=== PATIENT | male | born 1935 | race Caucasian/White ===

== ENCOUNTER → 2019-05-27 09:03 | Outpatient (CLI) | payer MEDICARE, OTHER ==
--- NOTE | 2019-05-31 09:53 | ST ---
PATIENT:ALEC FERNANDO MEDICAL RECORD: [id number] SEX: M LOCATION:[facility] ORDER #: ADMISSION DATE: 05/27/19 AGE OF PATIENT: 84 REFERRING PHYSICIAN: INTERPRETING PHYSICIAN: RAJ SUAREZ MD DATE OF SERVICE: 05/27/2019 PROCEDURE: Nuclear stress test. INDICATIONS: Chest pain, angina, shortness of breath. He was exercised on standard Lexiscan protocol with 33 mCi of sestamibi injected at peak stress, 11 mCi used previously for rest images. FINDINGS: Gated SPECT reveals preserved ejection fraction at 69% with good wall motion and thickening and brightening throughout all segments. SPECT imaging: Cardiolite was used as myocardial perfusion agent. There is reversibility inferiorly as well as apically. This includes the basal, mid, apical, inferior segments as well as the apex itself. The degree of reversibility is mild to moderate. The amount of myocardium involved is moderate. OVERALL IMPRESSION: This is an intermediate risk nuclear stress test, relatively a [id number]-[id number] amount of myocardium involved inferoapically with reversible ischemia with a preserved ejection fraction at 69% suggestive of hemodynamically significant coronary artery disease being present. TRANSINT:[id number] Voice Confirmation ID: [id number] DOCUMENT ID: [id number] RAJ SUAREZ MD at 0953 CC: [id number] DICTATION DATE: 05/27/19 1407 MANAGER SOCIAL WORK: 05/28/19 0119 DEP CLI 05/27/19 [place] [id number]
== END | disposition home or self-care (01) ==
LOC: D.HCCARDIO 09:03
PROVIDERS: ATTEND Internal Medicine Interventional Cardiology
DX: R07.9 Chest pain, unspecified (principal)

== ENCOUNTER 2019-07-19 08:57 | Outpatient (CLI) | payer OTHER ==
[~2019-07-19] VITALS: Ht 185.4 cm; Wt 94.5 kg
--- NOTE | ~2019-07-19 | HEMODYNAMI ---
PATIENT:ALEC FERNANDO MEDICAL RECORD: [id number] : 31 LOCATION:[facility] ADMISSION DATE: 07/19/19 Generatedon:07/19/201913:35 Patient name: ALEC FERNANDO Patient #: [id number] SSN: DO B: 1935 Date of study: 07/19/2019 Page: Of Hemodynamic Procedure Report Patient Data Patient Demographics Procedure consent was obtained First Name: ALEC Gender: Male Last Name: ABDULLAHI : 1935 Middle Initial: A Age: 84 year(s) Patient #: [id number] Race: Unknown Additional ID: [id number] Contact details [address]: [address] [place] [address] State: [place] City: [place] Zip code: [address] Past Medical History Performed procedures and imaging results Date Procedure Procedure Results Comments Stress testing with Positive SPECT MPI Allergies: No known allergies Admission Admission Data Admission Date: 07/19/2019 Admission Time: 8:57 Height (in.): 73 BSA: 2.19 (m2) Height (cm.): 185.42 BMI: 27.63 (kg/m2) Weight (lbs.): 209.44 Weight (kg.): 95 Lab Results Lab Result Date: 07/19/2019 Lab Result Time: 0:00 Biochemistry Name Units Result Min Max BUN mg/dl 19 --(----)*- 7 18 Creatinine mg/dl 0.9 --(-*--)-- 0.6 1.3 eGFR ml/min 85.04854 -*(----)-- 90 120 NONAFRICAN CBC Name Units Result Min Max Hematocrit % 45.1 --(-*--)-- 42 54 Hemoglobin g/dl 15.2 --(-*--)-- 13.5 17.5 Procedure Procedure Types Cath Procedure Diagnostic Procedure [facility] ED w/Coronaries FFR/IVUS FFR Initial Sedation Charges Moderate Sedation up to 15 minutes PCI Procedure Coronary Stent Coronary Stent Initial Procedure Description Procedure Date Procedure Date: 07/19/2019 Procedure Start Time: 13:07 Procedure End Time: 13:30 Procedure Staff Name Function Ej Rankin MD Performing Physician Jayla Cannon RT Monitor Arian Guerra RT Scrub Blanka Langford RN Nurse Procedure Data Cath Procedure Fluoroscopy Diagnostic fluoroscopy Total fluoroscopy Time: 7.5 time: 7.5 min min Diagnostic fluoroscopy Total fluoroscopy dose: 986 dose: 986 mGy mGy Contrast Material Contrast Material Type Amount (ml) Isovue 300 143 Entry Location Entry Primary Successful Side Size Upsize Upsize Entry Closure Mary ccessful Closure Location (Fr) 1 (Fr) 2 (Fr) Remarks Device Remarks Radial Right 6 Fr Mechanical artery Short Compression Estimated blood loss: 10 ml Diagnostic catheters Device Type Used For End Catheter Placement DIAGNOSTIC [place] 110cm 5 Procedure Fr catheter ([id number]) Procedure Complications No complications Procedure Medications Medication Administration Route Dosage Oxygen etCO2 Nasal cannula 2 l/min Lidocaine 2% added to field 20 Heparin Flush Bag added to field 2 bags (1000units/500ml NS) 0.9% NaCl I.V. 100 ml/hr Radial Cocktail I.A. 1 syringe (Verapamil 2mg/Nitro 400mcg/Heparin 1500units) Versed I.V. 1 mg Fentanyl I.V. 50 mcg Versed I.V. 1 mg Fentanyl I.V. 50 mcg Heparin Bolus I.V. 4000 units Integrilin (Bolus I.V. 8.5 ml 2mg/ml) Plavix P.O. 600 mg Hemodynamics Rest BSA: 2.19 (m2) HGB: 15.2 (g/dl) O2 Consumption: Estimated: 243.9 (ml/min) O2 Con sumption indexed: Estimated:111.37 (ml/min/m) Heart Rate: 65 (bpm) Snapshots Pre Cath Intra NCS Post Cath Vital Signs Time Heart Resp SPO2 etCO2 NIBP (mmHg) Rhythm Pain Sedation Rate (ipm) (%) (mmHg) Status Level (bpm) 12:51:16 66 11 98 32.9 173/96(145) NSR 0 (11) 10(A) , No pain 12:55:46 64 15 99 32.9 161/78(136) NSR 0 (11) 10(A) , No pain 13:00:06 65 14 97 12.7 151/82(134) NSR 0 (11) 10(A) , No pain 13:04:26 64 14 98 0 160/76(129) NSR 0 (11) 10(A) , No pain 13:08:49 63 11 98 35.1 149/79(127) NSR 0 (11) 10(A) , No pain 13:13:05 69 23 96 17.2 131/70(88) NSR 0 (11) 9(A) , No pain 13:17:19 67 17 94 0 131/76(111) NSR 0 (11) 9(A) , No pain 13:21:37 65 11 94 0.7 133/66(113) NSR 0 (11) 9(A) , No pain 13:25:53 66 12 96 35.9 133/73(116) NSR 0 (11) 9(A) , No pain 13:30:11 68 11 97 35.1 120/63(106) NSR 0 (11) 10(A) , No pain Medications Time Medication Route Dose Verified Delivered Reason Not es Effectiveness by by 12:51:10 Oxygen etCO2 2 l/min Ej Storyie used for Nasal Massiel Langford RN procedure cannula 12:51:17 Lidocaine 2% added 20ml Ej Ej for local to vial Massiel Rankin MD anesthetic field 12:51:24 Heparin Flush added 2 bags Ej Pagan used for Bag to Massiel Rankin MD procedure (1000units/500ml field NS) 12:51:33 0.9% NaCl I.V. 100 Ej [place]coso Per physician ml/hr Massiel Langford RN 13:07:21 Versed I.V. 1 mg Ej Buffie for sedation Massiel Langford RN 13:07:26 Fentanyl I.V. 50 mcg Ej Buffie for sedation Massiel Langford RN 13:08:56 Radial Cocktail I.A. 1 Ej Ej for (Verapamil syringe Massiel Rankin MD vasodilation 2mg/Nitro 400mcg/Heparin 1500units) 13:11:52 Versed I.V. 1 mg Ej Buffie for sedation Massiel Langford RN 13:11:57 Fentanyl I.V. 50 mcg Ejcedrick Storyie for sedation Massiel Langford RN 13:23:04 Heparin Bolus I.V. 4000 Ej Buffie for fifi ified units Massiel Langford RN anticoagulation with dr rankin 13:24:26 Integrilin I.V. 8.5 ml Ej viramontes (Bolus 2mg/ml) Massiel Langford RN antiplatelet therapy 13:30:16 Plavix P.O. 600 mg Ej Langford RN antiplatelet therapy Procedure Log Time Note 12:31:37 Signed procedure consent form obtained from patient. 12:31:39 Procedure Status Elective Heart Cath (OP). 12::41 Time tracking: Regular hours (M-F 7:00 - 5:00) 12:31:45 Plan of Care:Hemodynamics will remain stable., Cardiac rhythm will remain stable., Comfort level will be maintained., Respiratory function will remain adequate., Patient/ family verbilizes understanding of procedure., Procedure tolerated without complication., Recovers from procedure without complications.. 12:34:10 Patient Weight : 209.44 lbs 12:35:33 Patient Height : 73 inches 12:35:46 Patient allergic to No known allergies 12:35:49 Blanka Langford RN sent for patient. Start room use. 12:41:21 Patient received from Pre/Post Procedure Room to CCL 1 Alert and oriented. Tansferred to table in Supine position. 12:41:22 Warm blankets applied, and lindsey hugger turned on for patient comfort. 12:41:22 Correct patient and procedure confirmed by team. 12:41:23 ECG and BP/O2 sat monitors applied to patient. 12:50:01 Vital chart was started 12:50:05 Rhythm: sinus rhythm 12:50:07 Baseline sample Acquired. 12:50:09 Full Disclosure recording started 12:50:21 H&P Date Dictated: 06/20/2019 Within 30 days and on chart., H&P Addendum completed by physician on day of procedure. (MUST COMPLETE FOR ALL OUTPATIENTS). 12:50:41 Pre-procedure instructions explained to patient. 12:50:43 Pre-op teaching completed and patient verbalized understanding. 12:50:50 Is patient on blood thinner?No 12:50:51 Patient diabetic? No. 12:50:54 Previous problem with sedation/anesthesia? No ? 12:50:55 Snore? Yes 12:50:56 Sleep apnea? No 12:50:57 Deviated septum? No 12:50:59 Opens mouth fully? Yes 12:51:02 Sticks out tongue? Yes 12:51:04 Airway obstruction? No ? 12:51:07 Dentures? No ? 12:51:09 Modified Hal's test Ulnar < 7 seconds 12:51:10 Oxygen 2 l/min etCO2 Nasal cannula was administered by Blanka Langford RN; used for procedure; 12:51:11 Patient pain scale 0/10 ?. 12:51:16 IV patent on arrival in left hand with 0.9% NaCl at [facility]. 12:51:17 Lidocaine 2% 20ml vial added to field was administered by Ej Rankin MD; for local anesthetic; 12:51:24 Heparin Flush Bag (1000units/500ml NS) 2 bags added to field was administered by Ej Rankin MD; used for procedure; 12:51:33 0.9% NaCl 100 ml/hr I.V. was administered by Blanka Langford RN; Per physician; 12:56:20 Lab Result : BUN 19 mg/dl 12:56:20 Lab Result : Creatinine 0.9 mg/dl 12:56:20 Lab Result : eGFR NONAFRICAN 85.35314 ml/min 12:56:20 Lab Result : Hemoglobin 15.2 g/dl 12:56:20 Lab Result : Hematocrit 45.1 % 12:56:23 Lab results completed and on chart. 12:56:27 Right Radial & Right Groin area was prepped with chlora-prep and draped in sterile fashion 12:56:28 Alarms reviewed by R. N. 12:56:28 Sharps counted by scrub and verified by R.N. 13:00:51 Use device set Radial Dx or PCI 13:00:52 ACIST Syringe (49657) opened to sterile field. 13:00:53 ACIST Hand Control (20427) opened to sterile field. 13:00:53 ACIST Manifold (99857) opened to sterile field. 13:00:56 Tegaderm 4 x 4 (1626W) opened to sterile field. 13:01:02 Bag Decanter (2002) opened to sterile field. 13:01:03 Medline Cath Pack ([id number]) opened to sterile field. 13:01:03 MBrace Wrist Support (529290111) opened to sterile field. 13:01:05 SHEATH 6FR RAIN (6739544) opened to sterile field. 13:01:07 EMERALD Guide Wire (950-956) opened to sterile field. 13:06:48 --------ALL STOP TIME OUT------ 13:06:49 Final Timeout: patient, procedure, and site verified with staff and physician. All members of the team are in agreement. 13:06:50 Right Radial & Right Groin site verified by team. 13:06:54 Fire Safety Assessment: A--An alcohol-based skin anteseptic being used preoperatively., C--Open oxygen or nitrous oxide is being used., D--An ESU, laser, or fiber-optic light is being used. 13:06:56 Physical assessment completed. ASA score P 2 - A patient with mild systemic disease as per Ej Rankin MD. 13:06:59 2) 60-89 Mildly reduced kidney function, and other findings (as for stage 1) point to kidney disease. 13:07:02 Maximum allowable contrast dose (3.7 X eGFR X 0.75)236 ml. 13:07:05 Sedation plan: IV Moderate Sedation Medication:Versed, Fentanyl 13:07:09 Procedure started. 13:07:19 Local anesthetic to right radial artery with Lidocaine 2% by Ej Rankin MD.INITIAL ACCESS ONLY 13:07:21 Versed 1 mg I.V. was administered by Blanka Langford RN; for sedation; 13:07:26 Fentanyl 50 mcg I.V. was administered by Blanka Langford RN; for sedation; 13:08:05 A 6 Fr Short sheath was inserted into the Right Radial artery 13:08:32 A DIAGNOSTIC [place] 110cm 5 Fr catheter (798690) was advanced over the wire and used for Procedure. 13:08:56 Radial Cocktail (Verapamil 2mg/Nitro 400mcg/Heparin 1500units) 1 syringe I.A. was administered by Ej Rankin MD; for vasodilation; 13:09:47 LV gram done using TAVAREZ 13:09:51 Injector settings: Ml/sec: 5, Volume: 15, 13:10:45 EF : 55 % 13:11:52 Versed 1 mg I.V. was administered by Blanka Langford RN; for sedation; 13:11:53 LCA angiography performed. 13:11:57 Fentanyl 50 mcg I.V. was administered by Blanka Langford RN; for sedation; 13:12:37 RCA angiography performed. 13:12:57 Catheter exchanged over wire. 13:14:29 [place] Verrata Plus pressure wire (77697B) opened to sterile field. 13:14:30 INFLATOR Merit BasixCompak (DE2950) opened to sterile field. 13:14:30 GUIDE 6FR AR 2.0 SH catheter ([id number]) opened to sterile field. 13:14:46 6 Fr AR2 SH guide catheter was inserted over the wire 13:16:52 Guide Catheter removed. unable to cannulate vessel. 13:17:19 GUIDE 6FR HS II SH catheter ([id number]) opened to sterile field. 13:18:34 6 Fr HS 2 SH guide catheter was inserted over the wire 13:21:34 FFR/IFR wire advanced. 13:21:34 Wire advanced across lesion. 13:21:43 pRCA lesion measured at .84 with IFR 13:23:04 Heparin Bolus 4000 units I.V. was administered by Blanka Langford RN; for anticoagulation; verified with dr rankin 13:23:28 Pre PCI Site: [place] mRCA has 70% stenosis. 13:24:20 Place stent Inflation Number: 1 A COBRA RX 2.5 X 15 Stent was prepped and advanced across the Mid RCA 70. The stent was deployed at 13 SARA for 0:00 (min:sec) 0. 13:24:26 Integrilin (Bolus 2mg/ml) 8.5 ml I.V. was administered by Blanka Langford RN; for antiplatelet therapy; 13:25:15 Stent catheter was removed intact over wire. 13:25:16 Wire removed. 13:25:17 Guide catheter removed. 13:25:24 ZEPHYR REGULAR TR BAND (752689) opened to sterile field. 13:25:32 Procedure ended.(Physican Out) 13:26:05 ACT drawn and resulted at 326 seconds. (normal therapeutic range 180-240 seconds). 13:26:33 Sheath removed intact; hemostasis achieved with Mechanical Compression to the Right Radial artery. 13:26:38 Fluoroscopy time 07.50 minutes. ::42 Fluoroscopy dose: 986 mGy 13::42 Flurop Dose total: 986 13::52 Dose Area Product 62862 mGy/cm. 13:26:56 Contrast amount:Isovue 300 143ml. 13:26:59 Maximum allowable dose exceeded? No. 13:27:18 Sharps counted by scrub and verified by R.N. 13:29:14 [place] band inflated with 9cc of air. 13:29:26 Post-procedure physical assessment completed. ASA score P 2 - A patient with mild systemic disease as per Ej Rankin MD. 13:29:32 Post procedure rhythm: sinus rhythm 13::36 Estimated blood loss: 10 ml 13:29:40 Post procedure instruction explained to patient.Patient verbalizes understanding. 13:29:40 Patient needs reinforcement of post procedure teaching. 13:30:09 Procedure type changed to Cath procedure, Diagnostic procedure, LHC, LHC w/Coronaries, FFR/IVUS, FFR Initial, Sedation Charges, Moderate Sedation up to 15 minutes, PCI procedure, Coronary Stent, Coronary Stent Initial 13:30:16 Plavix 600 mg P.O. was administered by Blanka Langford RN; for antiplatelet therapy; 13:30:39 Procedure and supply charges have been captured, reviewed, submitted and are correct. 13:30:42 Procedure Complication : No complications 13:30:45 Vital chart was stopped 13:30:46 See physician's report for complete and final results. 13:30:47 Report given to Pre/Post Procedure Room. 13:30:50 Patient transfered to Pre/Post Procedure Room with Bed. 13:30:52 Procedure ended. 13:30:52 Full Disclosure recording stopped 13:30:56 End room use (Document Last) Intervention Summary Intervention Notes Time ActionType Lesion and Equipment Action# Pressure Duration Attributes Used 13:24:20 Place stent Mid RCA COBRA RX 1 13 00:00 2.5 X 15 Stent Device Usage Item Name Manufacture Quantity Catalog Hospital Part Current Minimal Lot# / Number Charge Number Stock Stock Serial# Code ACIST Syringe Acist 1 11698 594498 932865 676453 20 (05394) Medical Systems Inc ACIST Hand Acist 1 31852 194489 101518 720356 5 Control Medical (19127) Systems Inc ACIST Manifold Acist 1 05105 700069 476608 366015 5 (23797) Medical Systems Inc Tegaderm 4 x 4 3M 1 1626W 647648 038211 559335 5 (1626W) Bag Decanter Microtek 1 2001S 754864 49058 587205 5 (2001S) Medical Inc. Medline Cath Medline 1 [id number] 136886 93801 531914 5 Pack ([id number]) MBrace Wrist Advanced 1 140-0250-00 993920 01666 861898 5 Support Vascular ([id number]) Dynamics SHEATH 6FR Cardinal 1 9753743 770151 3581828 717590 5 RAIN (7418801) Health EMERALD Guide Cardinal 1 502-455 059268 551109 505833 5 Wire (502-455) [facility] DIAGNOSTIC Terumo 1 40-9583 555317 818499 533781 5 [place] 110cm 5 Fr catheter (429691) [place] 1 74451J 125314 [id number] 549177 5 Verrata Plus pressure wire (06721B) INFLATOR Merit Merit 1 [id number] 481237 644815 762174 15 I AND [employer] Medical (IZ9986) GUIDE 6FR AR Medtronic 1 [id number] 137079 00457 057660 1 2.0 SH catheter ([id number]) GUIDE 6FR HS Medtronic 1 [id number] 248237 21884 495542 1 II SH catheter ([id number]) COBRA RX 2.5 X Celonova 1 908-07-13609 715214 [id number] [id number] 3 [id number] 15 stent Biosciences ([id number]) ZEPHYR REGULAR Cardinal 1 985613 920180 2666080 270840 5 [facility] Arkivum (749750) Signature Audit [place] Stage Time Signature Unsigned Intra-Procedure 07/19/2019 Jayla Cannon 1:34:56 PM RT(R) Intra-Procedure 07/19/2019 Blanka Langford RN 1:35:20 PM Intra-Procedure 07/19/2019 Ej Rankin 1:35:47 PM [facility] [address] [place] [address]
[2019-07-19] MEDS ORDERED: MELATONIN10 M1 PO (09:31)
[2019-07-19] MEDS ORDERED: DULCOLAX STOOL100 MG PO (09:32)
[2019-07-19] MEDS ORDERED: VITAMIN B-122500 MCG PO (09:32)
[2019-07-19] MEDS ORDERED: BAYER CHEWABLE81 MG PO (09:32)
[2019-07-19] MEDS ORDERED: ALEVE220 MG PO (09:33)
[2019-07-19] MEDS ORDERED: MULTI-DAY VITAM1 TAB PO (09:33)
[2019-07-19] MEDS ORDERED: GARLIC PO (09:33)
--- NOTE | 2019-07-19 10:02 | NUR ---
4875 ALEKSEY CAGLE RNVARNISH THINNER NOTIFIED OF POSITIVE SUICIDE RISK SCREENING.
[2019-07-19 10:03] VITALS: BP 185/80; Ht 185.4 cm; Wt 94.5 kg
[2019-07-19 10:14] LABS: ALT (SGPT) 13 U/L (10-68); CALC OSMOLALITY 282 mosm/kg (275-300); CALCIUM 8.5 mg/dL (8.5-10.1); CARBON DIOXIDE 28.9 mmol/L (21.0-32.0); CHLORIDE - SERUM 106 mmol/L (98-107); CHOL - HDL RATIO 4.4 ratio (2.3-4.9); CHOLESTEROL, TOTAL 174 mg/dL (0-200); CREATININE - SERUM 0.9 mg/dL (0.6-1.3); GLUCOSE 91 mg/dL (74-106); HDL CHOLESTEROL 40 mg/dL (32-96); LDL CHOLESTEROL 119 mg/dL (0-100); SODIUM 141 mmol/L (136-145); TRIGLYCERIDE 78 mg/dL (30-200); UREA NITROGEN 19 mg/dL (7-18); eGFR NON AFRICAN AMERICAN 85 mL/min (90-120)
--- NOTE | 2019-07-19 11:52 | NUR ---
DR. DERAS COVERING FOR DR. SAMUELS NOTIFIED AND REVIEWED PT'S BEHAVIOR AND ASSESSMENT RESULTS. STATED TO GIVE RESOURCES TO PT AT TIME OF DISCHARGE. NO FURTHER ORDERS AT THSI TIME. RESOURCES REVIEWED WITH PT AND HE VERBALIZED UNDERSTANDING.
[2019-07-19 12:02] LABS: BASOPHILS 0.9 % (0-2); EOSINOPHILS 2.2 % (0-7); HEMATOCRIT 45.1 % (42.0-54.0); HEMOGLOBIN 15.2 g/dL (13.5-17.5); IMMATURE GRANULOCYTES 0.2 % (0-5); LYMPHOCYTES 26.6 % (15-50); MCH 28.5 pg (26.0-34.0); MCHC 33.7 g/dL (31.0-37.0); MCV 84.5 fL (80.0-100.0); MEAN PLATELET VOLUME 11.4 fL (7.4-10.4); MONOCYTES 8.8 % (2-11); NEUTROPHILS 61.3 % (40-80); RBC 5.34 10x6/uL (4.20-6.10); RDW 14.6 % (11.5-14.5)
[2019-07-19 12:03] LABS: PLATELET COUNT 231 10x3/uL (130-400)
--- NOTE | 2019-07-19 12:06 | NUR ---
NUNO BOYER WITH BEHAVIORAL HEALTH HAS ASSESSED AND CLEARED PT.
--- NOTE | 2019-07-19 13:56 | NUR ---
RECEIVED PT FROM JEWELRY DIPPER, PT IS ALERT, DENIES ANY C/O PAIN OR NAUSEA. NSR, RATE IS 63, BP IS 136/70. Z BAND IS CDI TO RIGHT WRIST, WRIST IMMOBILIZER IN PLACE. FINGERS WARM AND CAP REFILL IS BRISK. FRIEND AT BEDSIDE.
[2019-07-19] MEDS ORDERED: PLAVIX75 MG PO (14:05)
--- NOTE | 2019-07-19 14:11 | NUR ---
DR SUAREZ HAS ROUNDED, PT IS ALERT AND DENIES ANY C/O PAIN OR NAUSEA. Z BAND IS CDI, FINGERS WARM AND CAP REFILL IS BRISK. PO FLUIDS AT BEDSIDE, CALL LIGHT IS IN REACH.
--- NOTE | 2019-07-19 14:28 | NUR ---
PT SITTING UP IN BED, ALERT AND DENIES ANY C/O. Z BAND IS CDI, FINGERS WARM AND CAP REFILL IS BRISK. VSS, NO FAMILY AT BEDSIDE. PT REBEKAH SIPS OF WATER, STATES DOES NOT WANT SANDWICH AT THIS TIME. CALL LIGHT IN REACH.
--- NOTE | 2019-07-19 14:50 | NUR ---
PT SITTING UP IN BED, WATCHING TV. DENIES ANY C/O. VSS, Z BAND CDI, FINGERS WARM AND CAP REFILL IS BRISK.
--- NOTE | 2019-07-19 15:30 | NUR ---
PT ALERT, DENIES ANY C/O. Z BAND CDI, FINGERS WARM AND CAP REFILL IS BRISK. NSR, DENIES ANY C/O CHEST PAIN. SITTING UP IN BED, WATCHING TV, CALL LIGHT IN REACH.
--- NOTE | 2019-07-19 16:00 | NUR ---
PT VOIDED 400 CC CLEAR YELLOW URINE TO URINAL. Z BAND IS CDI, FINGERS WARM AND CAP REFILL IS BRISK. PT HAS REBEKAH 100% OF SANDWICH WTIH NO C/O NAUSEA. VSS.
--- NOTE | 2019-07-19 17:05 | NUR ---
1605 2 CC OF AIR WEANED FROM Z BAND WITH NO BLEEDING NOTED. 1620 3 CC OF AIR WEANED FROM Z BAND WITH NO BLEEDING NOTED. FINGERS WARM, CAP REFILL IS BRISK. PT ALERT AND DENIES ANY C/O.
--- NOTE | 2019-07-19 17:06 | NUR ---
1705 ALL AIR HAS BEEN WEANED FROM Z BAND WITH NO BLEEDING NOTED. FINGERS WARM AND CAP REFILL IS BRISK. FRIEND AT BEDSIDE, PT SITTING UP IN BED, WATCHING TV.
--- NOTE | 2019-07-19 17:55 | NUR ---
1720 Z BAND REMOVED AND 2X2, TEGADERM PLACED TO SITE. FINGERS WARM, CAP REFILL IS BRISK. PULSES PALPABLE. PT DENIES ANY NV DEFICIT TO HAND. WRIST IMMOBILIZER IN PLACE. IV HAS BEEN DC'D WITH CATH INTACT. DC INSTRUCTIONS REVIEWED WITH PT AND SIGNIFICANT OTHER WHO VERBALIZE UNDERSTANDING. PT AND SO VERBALIZE UNDERSTANDING TO START PLAVIX TOMORROW, MED COUNSELOR SHEET REVIEWED WITH PT AND COPY PROVIDED. 1735 PT DRESSING FOR DC TO HOME WITH ASSIST FROM NURSE. 1750 PT DRESSED FOR DC TO HOME. IS ALERT AND DENIES ANY C/O. DRESSING IS CDI TO RIGHT WRIST, FINGERS WARM AND PULSES PALPABLE. PT DENIES ANY NV DEFICIT TO HAND. PT ESCORTED TO PRIVATE AUTO VIA WC BY NURSE WITH SIGNIFICANT OTHER DRIVING HIM HOME. PT HAS ALL PERSONAL BELONGINGS AND DC INSTRUCTIONS UPON LEAVING UNIT.
--- NOTE | 2019-07-21 09:14 | OP ---
PATIENT NAME: ALEC FERNANDO MEDICAL RECORD: [id number] :31 LOCATION:[facility] ADMISSION DATE: SURGEON: RAJ SUAREZ MD DATE OF OPERATION: 07/19/2019 PROCEDURES: 1. PTCA stent RCA. 2. IFR. 3. Left heart catheterization. 4. Selective coronary angiography. 5. Left ventriculogram. INDICATION: Angina, coronary artery disease, abnormal nuclear stress test. PROCEDURE IN DETAIL: After informed consent was obtained and after a detailed description of risks, benefits as well as alternative therapies, the patient elected to proceed with angiogram and angioplasty. The right radial area was prepped and draped in normal sterile fashion. Right radial artery was cannulated via modified Seldinger technique with placement of 6-Filipino sheath. All catheters exchanged through this sheath. FINDINGS: The left ventriculogram was performed in standard 30-degree TAVAREZ view, reveals good cardiac wall motion, ejection fraction is 60%. SELECTIVE CORONARY ANGIOGRAPHY: 1. Left main is with no significant angiographic disease. 2. Left anterior descending has moderate irregularities, but no flow-limiting stenosis. 3. The left circumflex has moderate irregularities, but no flow-limiting stenosis. 4. Right coronary artery has 70% stenosis in the mid vessel. This correlates with the perfusion defect on nuclear stress testing and IFR is abnormal at 0.84. PTCA STENT OF THE RCA: The stent used 2.5 x 15 mm Cobra. Result was 0% residual stenosis. OVERALL IMPRESSION: Successful percutaneous transluminal coronary angioplasty stent of the right coronary artery going from 70% initial stenosis with abnormal IFR to 0% residual. TRANSINT:[id number] Voice Confirmation ID: [id number] DOCUMENT ID: [id number] RAJ SUAREZ MD at 0914 CC: [id number] DICTATION DATE: 07/19/19 1328 LEGAL DOCUMENT SPECIALIST: 07/19/19 1343 DEP CLI 07/19/[address] [address]
== END 2019-07-19 17:50 | disposition home or self-care (01) ==
LOC: D.CATH 08:57
PROVIDERS: ATTEND Internal Medicine Interventional Cardiology
DX: I25.119 Atherosclerotic heart disease of native coronary artery with unspecified angina pectoris (principal); R94.30 Abnormal result of cardiovascular function study, unspecified

== ENCOUNTER 2019-11-18 08:52 | Emergency (ER) | payer OTHER ==
[~2019-11-18] VITALS: Ht 185.4 cm; Wt 94.5 kg
[~2019-11-18 08:52] MED LIST: ALEVE220 MG PO; BAYER CHEWABLE81 MG PO; DULCOLAX STOOL100 MG PO; GARLIC PO; MELATONIN10 M1 PO; MULTI-DAY VITAM1 TAB PO; PLAVIX75 MG PO; VITAMIN B-122500 MCG PO
[2019-11-18 08:55] VITALS: Ht 185.4 cm; Wt 94.5 kg
[2019-11-18 09:32] LABS: BASOPHILS 0.5 % (0-2); EOSINOPHILS 1.1 % (0-7); HEMATOCRIT 39.2 % (42.0-54.0); HEMOGLOBIN 12.6 g/dL (13.5-17.5); IMMATURE GRANULOCYTES 0.2 % (0-5); LYMPHOCYTES 22.9 % (15-50); MCH 27.4 pg (26.0-34.0); MCHC 32.1 g/dL (31.0-37.0); MCV 85.2 fL (80.0-100.0); MEAN PLATELET VOLUME 10.8 fL (7.4-10.4); MONOCYTES 7.2 % (2-11); NEUTROPHILS 68.1 % (40-80); PLATELET COUNT 292 10x3/uL (130-400); RDW 14.4 % (11.5-14.5)
[2019-11-18 09:35] LABS: APTT 26.7 SECONDS (22.8-39.4); INR 1.07 (0.85-1.17); PROTIME 13.8 SECONDS (11.6-15.0)
[2019-11-18 09:40] LABS: ANION GAP 11.5 mmol/L (8-16); CALCIUM 8.4 mg/dL (8.5-10.1); CARBON DIOXIDE 27.6 mmol/L (21.0-32.0); CREATININE - SERUM 1.1 mg/dL (0.6-1.3); POTASSIUM - SERUM 4.1 mmol/L (3.5-5.1)
[2019-11-18 09:46] LABS: ALBUMIN 3.3 g/dL (3.4-5.0); BILIRUBIN - TOTAL 0.46 mg/dL (0.2-1.3); PROTEIN - SERUM 6.4 g/dL (6.4-8.2)
[2019-11-18 14:00] VITALS: BP 137/65
== END 2019-11-18 14:00 | disposition home or self-care (01) ==
LOC: D.ER 08:52
PROVIDERS: Family Medicine
DX: K92.2 Gastrointestinal hemorrhage, unspecified (principal); D64.9 Anemia, unspecified; K57.92 Diverticulitis of intestine, part unspecified, without perforation or abscess without bleeding